=== PATIENT | female | born 1960 | race Caucasian/White ===

== ENCOUNTER 2016-12-19 12:55 | Emergency (ER) | payer MEDICARE, MEDICAID ==
[2016-12-19 13:05] VITALS: RESP 18
[2016-12-19 13:38] LABS: RBC URINE < 1 /hpf (0-3); URINE BILIRUBIN NEGATIVE (NEGATIVE); URINE BLOOD NEGATIVE (NEGATIVE); URINE COLOR Yellow (YELLOW); URINE GLUCOSE (UA) NORMAL (Normal); URINE KETONE NEGATIVE (NEGATIVE); URINE LEUKOCYTE ESTERASE NEG Leu/uL (Negative); URINE PROTEIN NEGATIVE (NEGATIVE); URINE UROBILINOGEN NORMAL mg/dL (0.2-1.0); WBC URINE < 1 /hpf (0-5)
[2016-12-19] MEDS ORDERED: Sodium Chloride 0.9% 1,000 ML IV ONE (13:38)
[2016-12-19] MEDS ORDERED: Sodium Chloride 0.9% 1,000 ML ONE (13:54)
--- NOTE | 2016-12-19 14:02 | C.PDOC ---
History Of Present Illness 56-year-old female, PMHx includes Hyperlipidemia, Hypothyroidism, presents to the emergency department with complaints of lower abdominal pain and right flank pain, that started 3 days ago. Patient notes increase in frequency of urination. She denies fever or other complaints. Chief Complaint (Nursing): Abdominal Pain History Per: Patient History/Exam Limitations: no limitations Past Medical History Reviewed: Historical Data, Nursing Documentation, Vital Signs Vital Signs: Last Vital Signs Temp 98.1 F 12/19/16 16:22 Pulse 76 12/19/16 16:22 Resp 18 12/19/16 16:22 BP 130/90 12/19/16 16:22 Pulse Ox 100 12/19/16 16:22 - Medical History PMH: Back Problems, HTN, Hyperlipidemia, Hyperthyroidism Surgical History: Appendectomy - [facility] Procedures LAPAROSCOP APPENDECTOMY (10/04/12) Family History: States: No Known Family Hx - Social History Hx Tobacco Use: No Hx Alcohol Use: No Hx Substance Use: No - Immunization History Hx Tetanus Toxoid Vaccination: No Hx Influenza Vaccination: No Hx Pneumococcal Vaccination: No Review Of Systems Except As Marked, All Systems Reviewed And Found Negative. Constitutional: Negative for: Fever Cardiovascular: Negative for: Chest Pain Respiratory: Negative for: Shortness of Breath Genitourinary: Positive for: Frequency. Negative for: Vaginal Bleeding Musculoskeletal: Positive for: Back Pain Physical Exam - Physical Exam Appears: Non-toxic, No Acute Distress Skin: Warm, Dry, No Rash Oral Mucosa: Moist Neck: Normal ROM Cardiovascular: Rhythm Regular, No Murmur Respiratory: Normal Breath Sounds, No Accessory Muscle Use Back: CVA Tenderness (R) Extremity: Normal ROM Neurological/Psych: Oriented x3 ED Course And Treatment - Laboratory Results Result Diagrams: 12/19/16 14:20 12/19/16 14:20 O2 Sat by Pulse Oximetry: 97 Medical Decision Making Medical Decision Making: r/o uti/renal stone/pyelo- pt had hx of appendectomy in past. labs imaging pending 400: pain improved. imagign neg. urine neg. advise outpt f/u and return precautions. Disposition - Disposition Disposition: HOME/ ROUTINE Disposition Time: 04:00 Condition: STABLE Additional Instructions: please follow up with specialist. return to er with worsening symptoms or concerns. Prescriptions: Naproxen [Naprosyn] 500 mg PO BID PRN #14 tablet PRN Reason: Pain, Mild (1-3) Instructions: Acute Abdominal Pain (ED) Forms: [employer] (Maltese) Print Language: K[place] - Clinical Impression Clinical Impression: Abdominal pain - Scribe Statement The provider has reviewed the documentation as recorded by the Scribe (Benita Fung) All medical record entries made by the Scribe were at my direction and personally dictated by me. I have reviewed the chart and agree that the record accurately reflects my personal performance of the history, physical exam, medical decision making, and the department course for this patient. I have also personally directed, reviewed, and agree with the discharge instructions and disposition.
[2016-12-19 14:23] LABS: BASO % 0.3 % (0.0-2.0); EOS # 0.1 K/uL (0.0-0.7); EOS % 1.1 % (0.0-4.0); HEMATOCRIT 39.3 % (34.0-47.0); LYMPH # 1.7 K/uL (1.0-4.3); LYMPH % 30.3 % (20.0-40.0); MEAN CELL VOLUME 83.9 fL (81.0-99.0); MEAN CORPUSCULAR HEMOGLOBIN 27.9 pg (27.0-31.0); MEAN CORPUSCULAR HGB CONC 33.3 g/dL (33.0-37.0); MEAN PLATELET VOLUME 9.3 fL (7.2-11.7); MONO # 0.5 K/uL (0.0-0.8); MONO % 9.1 % (0.0-10.0); NRBC % 0.1 % (0.0-2.0); RED CELL DISTRIBUTION WIDTH 12.2 % (11.5-14.5); WHITE BLOOD COUNT 5.5 K/uL (4.8-10.8)
[2016-12-19 14:31] LABS: CHLORIDE 104 mmol/L (98-107)
[2016-12-19 14:32] LABS: POTASSIUM 4.1 mmol/L (3.6-5.2); SODIUM 142 mmol/L (132-148)
[2016-12-19 14:34] LABS: ALB/GLOB RATIO 1.2 (1.0-2.1); ALKALINE PHOSPHATASE 122 U/L (38-126); ALT/SGPT 45 U/L (9-52); AST/SGOT 30 U/L (14-36); BILIRUBIN,TOTAL 0.6 mg/dL (0.2-1.3); BLOOD UREA NITROGEN 6 mg/dL (7-17); CARBON DIOXIDE 25 mmol/L (22-30); GFR AFRICAN-AMERICAN > 60; GLUCOSE,RANDOM 85 mg/dL (65-105); TOTAL PROTEIN 7.2 g/dL (6.3-8.3)
--- NOTE | 2016-12-19 16:02 | CT ---
PROCEDURE: CT Abdomen and Pelvis without intravenous contrast HISTORY: abd pain COMPARISON: None. TECHNIQUE: Without contrast.. Contrast Dose: 0 Radiation dose: Total exam DLP = 271.46 mGy-cm. This CT exam was performed using one or more of the following dose reduction techniques: Automated exposure control, adjustment of the mA and/or kV according to patient size, and/or use of iterative reconstruction technique. FINDINGS: LOWER THORAX: Unremarkable. LIVER: Mild hepatomegaly. Diffusely diminished attenuation of the liver consistent with fatty infiltration. Smooth contour. No biliary ductal dilatation. No focal mass. GALLBLADDER AND BILE DUCTS: Unremarkable. PANCREAS: Unremarkable. No gross lesion or ductal dilatation. SPLEEN: Unremarkable. ADRENALS: Unremarkable. No mass. KIDNEYS AND URETERS: Unremarkable. No hydronephrosis. No solid mass. VASCULATURE: Unremarkable. No aortic aneurysm. BOWEL: Unremarkable. No obstruction. No gross mural thickening. APPENDIX: Not positively identified. No secondary findings to suggest appendicitis. PERITONEUM: Unremarkable. No free fluid. No free air. Hazy increased density within small bowel mesenteries suggests nonspecific mesenteric panniculitis. LYMPH NODES: No retroperitoneal or pelvic lymphadenopathy. BLADDER: Unremarkable. REPRODUCTIVE: Unremarkable uterus. BONES: No acute fracture. OTHER FINDINGS: None. IMPRESSION: No acute abnormality. Mild hepatomegaly with fatty infiltration of the liver. Nonspecific mesenteric panniculitis. Otherwise unremarkable examination.
[2016-12-19 16:23] VITALS: BP 130/90; PULSE 76; TEMP 98.1
[2016-12-19 19:31] VITALS: O2SAT 97
== END 2016-12-19 16:32 | disposition home or self-care (01) ==
LOC: C.ER 12:55
DX: R10.30 Lower abdominal pain, unspecified (principal); E78.5 Hyperlipidemia, unspecified; E03.9 Hypothyroidism, unspecified
CPT/HCPCS: 74176; 80053; 81001; 82948; 83690; 84703; 85025; 96361; 96374; 99285; J1885; J7040

== ENCOUNTER 2017-03-16 16:32 | Emergency (ER) | payer MEDICARE, MEDICAID ==
[2017-03-16 16:46] VITALS: BMI 23.9
[2017-03-16 17:31] VITALS: BP 147/90; PULSE 90; RESP 18; TEMP 98.2; O2SAT 100
--- NOTE | 2017-03-16 18:15 | C.PDOC ---
History Of Present Illness 56 y/o female presents to ED Time Seen by Provider: 03/16/17 16:56 Chief Complaint (Nursing): ENT Problem Past Medical History Vital Signs: Last Vital Signs Temp 98.2 F 03/16/17 17:28 Pulse 90 03/16/17 17:28 Resp 18 03/16/17 17:28 BP 147/90 03/16/17 17:28 Pulse Ox 100 03/16/17 18:15 - Medical History PMH: Back Problems, HTN, Hyperlipidemia, Hyperthyroidism Surgical History: Appendectomy - [facility] Procedures LAPAROSCOP APPENDECTOMY (10/04/12) Family History: States: Unknown Family Hx - Social History Hx Tobacco Use: No Hx Alcohol Use: No Hx Substance Use: No - Immunization History Hx Tetanus Toxoid Vaccination: No Hx Influenza Vaccination: No Hx Pneumococcal Vaccination: No ED Course And Treatment O2 Sat by Pulse Oximetry: 100 Disposition - Disposition Forms: [employer] (Polish)
[2017-03-16] MEDS ORDERED: Alum-Mag Hydrox-Simethicone Susp (30 mL) PO STA (18:16)
--- NOTE | 2017-03-16 18:20 | C.PDOC ---
History Of Present Illness 56 y/o female with PMhx with Hypothyroidism and HTN presents to ED with complaints of neck pain, right arm pain, throat pain and chest pain since 3am today. Patient states she woke up to take thyroid medication and could not swallow secondary to throat pain. Patient reports she started taking Motrin 600mg prior to symptoms developing. Patient denies fever, nausea, vomiting, sob or any other complaints at this time. Time Seen by Provider: 03/16/17 16:56 Chief Complaint (Nursing): ENT Problem History Per: Patient History/Exam Limitations: None Onset/Duration Of Symptoms: Hrs Current Symptoms Are (Timing): Still Present Past Medical History Reviewed: Historical Data, Nursing Documentation, Vital Signs Vital Signs: Last Vital Signs Temp 98.2 F 03/16/17 17:28 Pulse 90 03/16/17 17:28 Resp 18 03/16/17 17:28 BP 147/90 03/16/17 17:28 Pulse Ox 100 03/16/17 18:27 - Medical History PMH: Back Problems, HTN, Hyperlipidemia, Hyperthyroidism Surgical History: Appendectomy - [facility] Procedures LAPAROSCOP APPENDECTOMY (10/04/12) Family History: States: No Known Family Hx - Social History Hx Tobacco Use: No Hx Alcohol Use: No Hx Substance Use: No - Immunization History Hx Tetanus Toxoid Vaccination: No Hx Influenza Vaccination: No Hx Pneumococcal Vaccination: No Review Of Systems Constitutional: Negative for: Fever, Chills ENT: Positive for: Throat Pain Cardiovascular: Positive for: Chest Pain Respiratory: Negative for: Cough, Shortness of Breath Gastrointestinal: Negative for: Nausea, Vomiting Musculoskeletal: Positive for: Neck Pain Skin: Negative for: Rash Neurological: Negative for: Weakness, Numbness Physical Exam - Physical Exam Appears: Non-toxic, No Acute Distress Skin: Normal Color, Warm, Dry, No Rash Head: Atraumatic, Normacephalic Eye(s): bilateral: Normal Inspection Oral Mucosa: Moist Neck: Normal ROM, No Midline Cervical Tenderness, No Paracervical Tenderness, Supple Chest: Symmetrical, Other (Xyphoid Tenderness) Cardiovascular: Rhythm Regular Respiratory: Normal Breath Sounds, No Rales, No Rhonchi, No Wheezing Gastrointestinal/Abdominal: Soft, No Tenderness, No Guarding, No Rebound Extremity: Normal ROM, Capillary Refill (<2 seconds) Neurological/Psych: Oriented x3 ED Course And Treatment O2 Sat by Pulse Oximetry: 100 (RA) Pulse Ox Interpretation: Normal Medical Decision Making Medical Decision Making: sore throat, no s/s of infection vague chronic neck pain, positional again, NSAIDS and ice therapy educated Xyfoidal digitally reproducable discomfort. Benign abdomen Consider GERD from chronic naproxyn/Motrin use. Follow-up already arranged with PMD in 6 days. Disposition Doctor Will See Patient In The: Office Counseled Patient/Family Regarding: Studies Performed, Diagnosis - Disposition Referrals: Al Hernandez MD [Medical Doctor] - Disposition: HOME/ ROUTINE Disposition Time: 18:19 Condition: GOOD Additional Instructions: Ibuprofeno 400-600 mg cada 6 horas jluis necessario ellis para vane de la garg[place], david, y pared del pecho. pepcid 20 mg en la noche para prevenir irritacio'n del estomago debido al ibuprofeno Maalox 30 cc (jb cucharada) 5 veces al irving en james de reflujo acides del estomago Pide' que Dr. Hernandez te refiere a un Gastroenterologo jluis necessario. Instructions: Pharyngitis (ED), Gastroesophageal Reflux Disease (ED), Cervical Sprain (ED) Forms: [employer] (Mauritian) Print Language: UZBEK - Clinical Impression Clinical Impression: Sore throat, Chest wall pain, Chronic neck pain - Scribe Statement The provider has reviewed the documentation as recorded by the Scribpolly Lester All medical record entries made by the Scribe were at my direction and personally dictated by me. I have reviewed the chart and agree that the record accurately reflects my personal performance of the history, physical exam, medical decision making, and the department course for this patient. I have also personally directed, reviewed, and agree with the discharge instructions and disposition.
[2017-03-16] MEDS ORDERED: Aluminum Hydroxide/Magnesium Hydroxide Susp (30 mL) ONE (18:26)
--- NOTE | 2017-03-21 03:10 | CARD ---
APPROVED REPORT EKG Measurement Heart [id number] <Conclusion> Normal sinus rhythm Possible Left atrial enlargement Borderline ECG
== END 2017-03-16 18:31 | disposition home or self-care (01) ==
LOC: C.ER 16:32
DX: R07.0 Pain in throat (principal); R07.89 Other chest pain; G89.29 Other chronic pain; M54.2 Cervicalgia